=== PATIENT | male | born 1985 | race Caucasian/White ===

== ENCOUNTER 2017-12-19 00:41 | Emergency (ER) | payer MEDICAID, OTHER ==
[~2017-12-19] VITALS: Ht 162.6 cm; Wt 72.0 kg
[~2017-12-19 00:41] MED LIST: CEPH-357 PO; NORCO10T PO; [UNRECOGNIZED DRUG - OTHER]
[2017-12-19 00:45] VITALS: BP 151/81
== END 2017-12-19 02:52 ==
LOC: ER 00:42
DX: M25.511 Pain in right shoulder (principal); M25.512 Pain in left shoulder; F17.200 Nicotine dependence, unspecified, uncomplicated; Z72.89 Other problems related to lifestyle; Z88.1 Allergy status to other antibiotic agents; Z88.6 Allergy status to analgesic agent; Z88.8 Allergy status to other drugs, medicaments and biological substances
CPT/HCPCS: 99283